=== PATIENT | female | born 1990 | race Caucasian/White ===

== ENCOUNTER → 2016-06-21 | Outpatient (CLI) | payer OTHER ==
--- NOTE | 2016-06-21 16:50 | REP ---
Clinical: Pelvic pain . Technique: Transabdominal pelvic ultrasound followed by transvaginal examination for better evaluation of the endometrium and adnexa with color Doppler evaluation of the ovaries. Findings: Bladder is unremarkable and measures 12.7 x 13.2 x 8.6 cm. Normal anteverted uterus measures 8.1 x 3.8 x 4.9 cm . The endometrial complex measures 6.6 mm thickness. No discrete uterine or endometrial abnormalities are appreciated. Bilateral ovaries are normal in appearance and vascularity without evidence for torsion. Right ovary measures 3.8 x 2.2 x 3.0 cm ; R I = 0.54 . Left ovary measures 3.5 x 2.1 x 1.7 cm ; R I = 0.46 . No pelvic fluid or adnexal mass lesion . Impression: Normal pelvic ultrasound. Normal uterus. Normal bilateral ovaries without torsion. Signed by Bob Butt MD 06/21/2016 04:42 P
== END ==
LOC: M LRY 15:53
PROVIDERS: ATTEND Family Medicine
DX: R10.2 Pelvic and perineal pain (principal)
CPT/HCPCS: 76830; 76856; 87491; 87591; 93976; 96372; G0463; J0696

== ENCOUNTER → 2016-06-21 | Outpatient (REF) | payer OTHER | LOC: M SFHCLERA 14:22 | PROVIDERS: ATTEND Family Medicine | DX: R10.2 Pelvic and perineal pain (principal) ==

== ENCOUNTER → 2016-06-24 | Outpatient (CLI) | payer OTHER ==
--- NOTE | 2016-06-24 16:25 | REP ---
Clinical: Acute lower back pain . Technique: AP, lateral, bilateral oblique, and coned-down views. Findings: Alignment and lordosis is maintained. The vertebral bodies including transverse process and spinous processes are intact and normal. There is no evidence for acute fracture / compression injury or subluxation. No evidence for spondylolysis or spondylolisthesis. No significant degenerative change is noted. Impression: Normal lumbosacral spine radiograph series. Signed by Bob Butt MD 06/24/2016 04:17 P
== END ==
LOC: M LRY 14:53
PROVIDERS: ATTEND Family Medicine
DX: M54.5 Low back pain (principal)
CPT/HCPCS: 72110; 87086; G0463

== ENCOUNTER → 2016-06-24 | Outpatient (REF) | payer OTHER | LOC: M SFHCLERA 13:55 | PROVIDERS: ATTEND Family Medicine | DX: M54.5 Low back pain (principal) ==

== ENCOUNTER → 2016-10-17 | Outpatient (REF) | payer OTHER ==
[2016-10-17 19:29] LABS: MEAN CORPUSCULAR HEMOGLOBIN 30.4 pg (27.0-33.0); WHITE BLOOD COUNT 8.1 K/mm3 (4.0-10.0)
== END ==
LOC: M SFHCLERA 09:46
PROVIDERS: ATTEND Family Medicine
DX: K62.5 Hemorrhage of anus and rectum (principal)

== ENCOUNTER → 2017-06-30 | Outpatient (CLI) | payer OTHER | LOC: M RAD 08:23 | DX: R10.30 Lower abdominal pain, unspecified (principal) | CPT/HCPCS: 76700 ==

== ENCOUNTER 2017-07-10 10:13 | Day surgery (SDC) | payer OTHER ==
[2017-07-10] MEDS ORDERED: NS 1,000 ML IV (10:30)
[2017-07-10] MEDS ORDERED: PROPOFOL 200 MG/20 ML VIAL As Ordered (11:43)
== END 2017-07-10 12:41 | disposition home or self-care (01) ==
LOC: M SDC 12:41
DX: R10.30 Lower abdominal pain, unspecified (principal); K92.1 Melena; K63.3 Ulcer of intestine; D68.51 Activated protein C resistance; G47.00 Insomnia, unspecified; Z86.14 Personal history of Methicillin resistant Staphylococcus aureus infection; Z98.51 Tubal ligation status; Z87.891 Personal history of nicotine dependence
CPT/HCPCS: 45380

== ENCOUNTER → 2017-07-25 | Outpatient (CLI) | payer OTHER ==
[2017-07-25 13:20] LABS: BASO % 0.4 % (0.0-1.0); EOS # 0.2 10^3/uL (0.0-0.50); EOS % 2.5 % (0.0-3.0); HEMATOCRIT 36.5 % (36.0-47.0); HEMOGLOBIN 12.3 g/dl (12.0-16.0); IMMATURE GRANULOCYTE % 0.1 % (0-3.0); LYMPH # 2.2 10^3/uL (1.5-6.5); LYMPH % 25.9 % (24.0-44.0); MEAN CORPUSCULAR HEMOGLOBIN 29.7 pg (27.0-33.0); MEAN CORPUSCULAR HGB CONC 33.7 g/dl (32.0-36.5); MEAN CORPUSCULAR VOLUME 88.2 fl (80.0-96.0); MONO # 0.5 10^3/uL (0.0-0.8); MONO % 5.7 % (0.0-5.0); NEUTROPHILS # 5.6 10^3/uL (1.8-7.7); NEUTROPHILS % 65.4 % (36.0-66.0); PLATELET COUNT, AUTOMATED 294 10^3/uL (150-450); RED BLOOD COUNT 4.14 10^6/uL (4.00-5.40); RED CELL DISTRIBUTION WIDTH 13.2 % (11.5-14.5); WHITE BLOOD COUNT 8.5 10^3/uL (4.0-10.0)
[2017-07-25 13:38] LABS: ALBUMIN 3.7 GM/DL (3.2-5.2); ALBUMIN/GLOBULIN RATIO 1.28 (1.00-1.93); ALKALINE PHOSPHATASE 42 U/L (45-117); ALT/SGPT 24 U/L (12-78); ANION GAP 9 MEQ/L (8-16); AST/SGOT 15 U/L (7-37); BILIRUBIN,DIRECT < 0.1 MG/DL (0.0-0.2); BILIRUBIN,TOTAL 0.2 MG/DL (0.2-1.0); BLOOD UREA NITROGEN 10 MG/DL (7-18); C REACTIVE PROTEIN QUANTITATIV < 0.30 MG/DL (0.00-0.30); CALCIUM LEVEL 8.7 MG/DL (8.5-10.1); CARBON DIOXIDE LEVEL 26 MEQ/L (21-32); CHLORIDE LEVEL 109 MEQ/L (98-107); CREATININE FOR GFR 0.75 MG/DL (0.55-1.30); GLOMERULAR FILTRATION RATE > 60.0 (>60); GLUCOSE, FASTING 90 MG/DL (70-100); SODIUM LEVEL 144 MEQ/L (136-145); TOTAL PROTEIN 6.6 GM/DL (6.4-8.2)
[2017-07-25 14:05] LABS: ERYTHROCYTE SEDIMENTATION RATE 5 mm/hr (0-20)
[2017-07-26 12:11] LABS: HEPATITIS B SURFACE ANTIBODY POSITIVE (POSITIVE)
[2017-07-26 12:14] LABS: HEPATITIS B SURFACE ANTIGEN NEGATIVE (NEGATIVE)
[2017-07-26 12:30] LABS: HEPATITIS C VIRUS ABY INDEX 0.1 INDEX (<0.8)
== END ==
LOC: M LAB 12:34
DX: R19.7 Diarrhea, unspecified (principal)
CPT/HCPCS: 80076

== ENCOUNTER → 2017-12-20 | Outpatient (CLI) | payer OTHER | LOC: M LRY 14:02 | DX: S99.921A Unspecified injury of right foot, initial encounter (principal); X58.XXXA Exposure to other specified factors, initial encounter; Y92.9 Unspecified place or not applicable | CPT/HCPCS: 73660; G0463 ==

== ENCOUNTER → 2018-01-16 | Outpatient (REF) | payer OTHER ==
[2018-01-24 14:16] LABS: CALPROTECTIN STOOL <16 ug/g (0-120)
== END ==
LOC: M LAB REF 10:54
DX: R19.7 Diarrhea, unspecified (principal)
CPT/HCPCS: 83993

== ENCOUNTER → 2018-02-01 | Outpatient (REF) | payer OTHER ==
[2018-02-01 11:50] LABS: APPEARANCE, URINE CLEAR (CLEAR); BACTERIA, URINE AUTO NEGATIVE (NEGATIVE); BILIRUBIN, URINE AUTO NEGATIVE (NEGATIVE); BLOOD, URINE BLOOD NEGATIVE (NEGATIVE); COLOR, URINE STRAW (YELLOW); GLUCOSE, URINE (UA) AUTO NEGATIVE (NEGATIVE); KETONE, URINE AUTO NEGATIVE (NEGATIVE); LEUKOCYTE ESTERASE, URINE AUTO TRACE (NEGATIVE); MUCUS, URINE SMALL (NEGATIVE); NITRITE, URINE AUTO NEGATIVE (NEGATIVE); PROTEIN, URINE AUTO NEGATIVE (NEGATIVE); RBC, URINE AUTO 0 /HPF (0-3); SPECIFIC GRAVITY URINE AUTO 1.003 (1.002-1.035); SQUAMOUS EPITHELIAL CELL UR AU 0 /HPF (0-6); UROBILINOGEN, URINE AUTO 0.2 mg/dL (0.0-2.0); WBC, URINE AUTO 0 /HPF (0-3)
== END ==
LOC: M SFHCLERA 08:49
DX: R30.0 Dysuria (principal)

== ENCOUNTER → 2018-02-05 | Outpatient (REF) | payer OTHER ==
[2018-02-05 22:21] LABS: CHLAMYDIA DNA AMPLIFICATION NEGATIVE (NEGATIVE); GC DNA AMPLIFICATION NEGATIVE (NEGATIVE)
== END ==
LOC: M SFHCLERA 16:27
DX: R10.2 Pelvic and perineal pain (principal)

== ENCOUNTER → 2018-02-15 | Outpatient (CLI) | payer OTHER ==
[2018-02-15 15:25] LABS: ERYTHROCYTE SEDIMENTATION RATE 4 mm/hr (0-20)
[2018-02-15 16:10] LABS: C REACTIVE PROTEIN QUANTITATIV < 0.30 MG/DL (0.00-0.30)
[2018-02-17 14:11] LABS: H PYLORI SERUM QUANT IgG ABY 3.29 (0.00-0.79)
[2018-02-17 14:11] LABS: H PYLORI SERUM QUANT IGM <9.0 units (0.0-8.9)
[2018-02-22 08:30] LABS: IBDSER1 SEE SEPARATE REPORT
== END ==
LOC: M LAB 13:54
DX: R19.7 Diarrhea, unspecified (principal)
CPT/HCPCS: 86140

== ENCOUNTER → 2018-04-24 | Outpatient (REF) | payer OTHER ==
[~2018-04-24] MED LIST: MULT1TAB8 PO
[2018-04-27 00:40] LABS: HPV HYBRID CAPTURE II Negative (Negative)
== END ==
LOC: M LAB REF 13:21
PROVIDERS: ATTEND Obstetrics & Gynecology
DX: Z12.4 Encounter for screening for malignant neoplasm of cervix (principal)

== ENCOUNTER → 2018-04-26 | Outpatient (CLI) | payer OTHER ==
--- NOTE | 2018-04-27 08:59 | REP ---
Clinical: Pelvic and perineal pain . Comparison: 06/21/2016 Technique: Transabdominal pelvic ultrasound followed by transvaginal examination for better evaluation of the endometrium and adnexa with color Doppler evaluation of the ovaries. Findings: Bladder is unremarkable and measures 6.0 x 4.7 x 8.7 cm . Normal anteverted uterus measures 9.1 x 4.4 x 5.3 cm . The endometrial complex measures 5.5 mm thickness excluding trace endocervical fluid. Small Nabothian cysts identified. No significant discrete uterine or endometrial abnormalities are appreciated. Bilateral ovaries are normal in appearance and vascularity without evidence for torsion. Right ovary measures 4.0 x 2.9 x 3.0 cm with 2.2 cm involuting physiologic cyst ; R I = 0.58 . Left ovary measures 3.4 x 1.3 x 2.0 cm ; R I = 0.59 . Trace pelvic free fluid likely physiologic. No adnexal mass lesion identified. Impression: 1. Essentially normal pelvic ultrasound with likely physiologic changes as described above including involuting right ovarian cyst trace endocervical fluid. Electronically Signed by Bob Butt MD 04/27/2018 08:51 A
== END ==
LOC: M RAD 11:51
PROVIDERS: ATTEND Obstetrics & Gynecology
DX: R10.2 Pelvic and perineal pain (principal); Z80.3 Family history of malignant neoplasm of breast; N83.291 Other ovarian cyst, right side

== ENCOUNTER → 2018-06-26 | Outpatient (CLI) | payer OTHER | LOC: M SMT 10:46 | PROVIDERS: ATTEND Obstetrics & Gynecology | DX: Z80.3 Family history of malignant neoplasm of breast (principal) ==

== ENCOUNTER → 2018-07-30 | Outpatient (CLI) | payer OTHER ==
--- NOTE | 2018-07-31 09:30 | REPMRS ---
Patient History The patient states she has not had a clinical breast exam in over a year. Family history of breast cancer in maternal grandmother, colorectal cancer at age 85 in paternal grandfather, endometrial cancer in paternal aunt, prostate cancer at age 63 in father. 2D only. denied. Patient shielded. Digital Mammo Screening Bilat: July 30, 2018 - Exam #: [id number] Bilateral CC and MLO view(s) were taken. Technologist: Pau Beauchamp, Technologist FINDINGS: The breast tissue is extremely dense which could obscure a lesion on mammography. There is no evidence of cancer on this mammogram. Assessment: BI-RADS/ACR category 2 mammogram. Benign Findings. Recommendation Routine screening mammogram of both breasts in 1 year (for women over age 40). This mammogram was interpreted with the aid of an FDA-approved computer-aided dectection system. Electronically Signed By: Aguila Combs MD 07/31/18 [id number]
== END ==
LOC: M RAD 17:43
PROVIDERS: ATTEND Obstetrics & Gynecology
DX: Z12.31 Encounter for screening mammogram for malignant neoplasm of breast (principal)

== ENCOUNTER → 2018-08-02 | Outpatient (REF) | payer OTHER | LOC: M LAB REF 17:27 | PROVIDERS: ATTEND Obstetrics & Gynecology | DX: Z01.818 Encounter for other preprocedural examination (principal); R10.2 Pelvic and perineal pain; N85.00 Endometrial hyperplasia, unspecified ==

== ENCOUNTER 2018-08-20 09:27 | Day surgery (SDC) | payer OTHER ==
[~2018-08-20] VITALS: Ht 154.9 cm; Wt 56.7 kg
[~2018-08-20 09:27] MED LIST changes: +LIDOCAINE 2% INJ 100 MG/5 ML SDV (FOR ANES.) As Ordered ONE; +LR 1,000 ML IV SCH; +MIDAZOLAM INJ 2 MG/2 ML VIAL (J2250) As Ordered ONE; +ONDANSETRON 4MG/2ML VIAL (J2405) As Ordered ONE; +PROPOFOL 200 MG/20 ML VIAL As Ordered ONE; +ROCURONIUM BROMIDE 50 MG/5 ML VIAL As Ordered ONE; +dexameTHASONE 4 MG/ML 1ML VIAL (J1100) As Ordered ONE; +fentaNYL 250 MCG/5 ML INJECTION (J3010) As Ordered ONE
[2018-08-20 09:50] LABS: HEMATOCRIT 41.3 % (36.0-47.0); HEMOGLOBIN 13.7 g/dl (12.0-15.5); MEAN CORPUSCULAR HGB CONC 33.2 g/dl (32.0-36.5); MEAN CORPUSCULAR VOLUME 90.4 fl (80.0-96.0); PLATELET COUNT, AUTOMATED 264 10^3/uL (150-450); RED BLOOD COUNT 4.57 10^6/uL (4.00-5.40); WHITE BLOOD COUNT 7.6 10^3/uL (4.0-10.0)
[2018-08-20 10:22] LABS: HCG, SERUM QUALITATIVE NEGATIVE (NEGATIVE)
[2018-08-20] MEDS ORDERED: BUPIVACAINE HCL 0.25% 30 ML VIAL As Ordered ONE (10:22)
[2018-08-20] MEDS ORDERED: METHYLENE BLUE 0.5% (5MG/ML) 10 ML AMP (PROVAYBLUE)(Q9968 PER 1MG) As Ordered ONE (10:22)
[2018-08-20] MEDS ORDERED: ROCURONIUM BROMIDE 50 MG/5 ML VIAL As Ordered ONE (12:04)
[2018-08-20] MEDS ORDERED: KETOROLAC 60 MG/2 ML VIAL (J1885) As Ordered ONE (12:16)
[2018-08-20] MEDS ORDERED: fentaNYL 100 MCG/2 ML INJECTION (J3010) As Ordered ONE (12:54)
[2018-08-20] MEDS ORDERED: IBUP80TA PO (12:58)
[2018-08-20] MEDS ORDERED: OXYC1TAB23 PO (12:59)
[2018-08-20] MEDS ORDERED: PERCOCET 5MG/325MG TAB PO PRN (13:00)
[2018-08-20] MEDS ORDERED: PROMETHAZINE 25 MG SUPP PR PRN (13:00)
[2018-08-20] MEDS ORDERED: COLA100C5 PO (13:00)
[2018-08-20] MEDS ORDERED: PROMETHAZINE INJ 25 MG/ML VIAL (J2550) IV PRN (13:00)
[2018-08-20] MEDS ORDERED: ONDA4TAB5 PO (13:01)
[2018-08-20] MEDS: PERCOCET 5MG/325MG TAB PO PRN ×4 (13:10→23:07)
[2018-08-20] MEDS: fentaNYL 100 MCG/2 ML INJECTION (J3010) IV PRN ×4 (13:10→13:25)
[2018-08-20] MEDS ORDERED: HYDROMORPHONE HCL 0.5 MG/ 0.5 ML SYRINGE (J1170 PER 1) IV PRN (13:15)
[2018-08-20] MEDS ORDERED: ONDANSETRON 4MG/2ML VIAL (J2405) IV PRN (13:15)
[2018-08-20] MEDS ORDERED: LR 1,000 ML IV SCH (13:15)
[2018-08-20 14:15] VITALS: BP 116/64
[2018-08-20] MEDS: LR 1,000 ML IV SCH ×2 (14:57→21:15)
[2018-08-20 15:00] VITALS: BP 111/59
[2018-08-20 16:00] VITALS: BP 111/60
[2018-08-20 18:00] VITALS: BP 121/53
[2018-08-20] MEDS: KETOROLAC 30 MG/ML VIAL (J1885) IV SCH (18:06)
[2018-08-20] MEDS: DOCUSATE SODIUM 100 MG CAP PO SCH (20:53)
[2018-08-20 22:00] VITALS: BP 98/54
[2018-08-21] MEDS: KETOROLAC 30 MG/ML VIAL (J1885) IV SCH ×2 (00:32→06:00)
[2018-08-21 02:00] VITALS: BP 96/53
[2018-08-21] MEDS: LR 1,000 ML IV SCH (05:15)
[2018-08-21 06:00] VITALS: BP 101/57
[2018-08-21] MEDS: PERCOCET 5MG/325MG TAB PO PRN ×2 (06:09→10:40)
[2018-08-21 06:43] LABS: BASO % 0.1 % (0.0-1.0); EOS # 0.1 10^3/uL (0.0-0.50); EOS % 0.6 % (0.0-3.0); HEMATOCRIT 33.2 % (36.0-47.0); LYMPH # 2.5 10^3/uL (1.5-4.5); LYMPH % 17.8 % (24.0-44.0); MEAN CORPUSCULAR HEMOGLOBIN 29.9 pg (27.0-33.0); MEAN CORPUSCULAR HGB CONC 33.1 g/dl (32.0-36.5); MEAN CORPUSCULAR VOLUME 90.2 fl (80.0-96.0); MONO % 6.8 % (0.0-5.0); NEUTROPHILS # 10.5 10^3/uL (1.8-7.7); NEUTROPHILS % 74.2 % (36.0-66.0); PLATELET COUNT, AUTOMATED 205 10^3/uL (150-450); RED BLOOD COUNT 3.68 10^6/uL (4.00-5.40); WHITE BLOOD COUNT 14.2 10^3/uL (4.0-10.0)
[2018-08-21] MEDS: DOCUSATE SODIUM 100 MG CAP PO SCH (08:13)
--- NOTE | 2018-08-21 08:35 | NUR ---
Operative Note DATE OF PROCEDURE: 08/20/2018 PREOPERATIVE DIAGNOSIS: 1. Chronic pelvic pain/dysmenorrhea POSTOPERATIVE DIAGNOSIS: 1. Chronic pelvic pain/dysmenorrhea PROCEDURE PERFORMED: Robotic-assisted total laparoscopic hysterectomy, bilateral salpingectomy, and cystoscopy. SURGEON: Klaus Tran DO. LOOM MECHANIC: USAMA Umanzor (needed for uterine manipulation). ANESTHESIA: General endotracheal. SPECIMENS TO PATHOLOGY: Uterus, cervix with bilateral fallopian tubes ESTIMATED BLOOD LOSS: 50 mL. FLUIDS REPLACED: 1.5 liters lactated Ringer's. DRAINS: Dillon catheter 250 mL. COMPLICATIONS: None. PREOPERATIVE ANTIBIOTICS: Ancef 2g IV x 1 (administered within 30 minutes of procedure start time) INTRAOPERATIVE FINDINGS: Uterus was approximately 8 cm in greatest dimension. The uterus was of normal shape/contour (no leiomyomas). The right and left ovary and fallopian tubes were normal in appearance. Cystoscopic findings: No bladder injury. No suture material. Bilateral ureteral orifice efflux visualized after IV infusion of methylene blue. INDICATION: Chronic pelvic pain/dysmenorrhea, declining further medical management or more conservative surgical management (i.e endometrial ablation) PROCEDURE: The patient was counseled and consented on the risks, benefits, indications, and alternatives of the procedure. Informed consent was obtained. She was take n to the operating room with an IV running and placed on the operating table in the dorsal supine position. General anesthesia was administered and airway secured without any difficulty. The patient was placed in a level horizontal low lithotomy position. She was prepped and draped in a normal sterile fashion. A time-out was performed per protocol. A Dillon catheter was placed under sterile conditions. A sterile speculum was placed into the vagina with good visualization of the cervix. The anterior lip of the cervix was grasped with a single-tooth tenaculum and downward traction was applied. The uterus was sounded to 8 cm. The cervix was sequentially dilated with Alvarez dilators up to #16. The anterior and posterior lip were tagged with and interrupted stitch using #0 Vicryl suture. The VCare uterine manipulator was placed in typical fashion without any difficulty. The single-toothed tenaculum was removed. The sterile speculum was removed. The VCare uterine manipulator was noted to be adequately in place. A glove switch was performed. Attention was turned to the abdomen. A 2 mm umbilical incision was made with the 11 blade. The Veress needle was placed through this incision into the intraperitoneal cavity. Intraperitoneal placement was confirmed with the following checks: no resistance/ease of flow of normal saline from the attached syringe through the Veress needle, no return of blood/fluid/succus upon aspirating with the attached syringe, a positive drop test, and the opening pressure during insufflation was less than 10 mmHg. The abdomen was insufflated with 2.5 liters of gas. The Veress needle was removed. An 8 mm horizontal midline, supraumbilical incision was made with the 11 blade. Through this incision, the trocar was placed under direct visualization technique into the intraperitoneal cavity. Intraperitoneal placement was confirmed. The patient was placed in a low lithotomy steep Trendelenberg position. The right and left lower quadrant port sites were placed via 8 mm incisions using the 11 blade. The 8 mm da Kale cannulas were placed under laparoscopic guidance on both sides. An additional 8 mm accessory port-site was placed under laparoscopic guidance in the left upper quadrant. Given the successful placement of all the DaVinci cannulas, the robot was easily side-docked. Attention was turned to the [employer] robotic console. The right fallopian tube, utero-ovarian ligament, and round ligament were sequentially clamped, coagulated and transected with the [employer] vessel sealer device. The Da Kale vessel sealer was used to dissect and mobilize the right-sided half of the vesicouterine peritoneum/"bladder flap" with both blunt and bipolar dissection. The right uterine vasculature was skeletonized and identified. Excellent hemostasis was achieved. The left fallopian tube, utero-ovarian ligament and round ligament were sequentially clamped, coagulated and transected using the Da Kale vessel sealer device. The left uterine vasculature was skeletonized and easily identified. Excellent hemostasis was noted. The remainder of the vesicouterine peritoneum was dissected and mobilized along the anterior portion of the VCare uterine manipulator cup in order to complete the bladder flap. This resulted in adequate mobilization/displacement of the bladder away from the cervix. During all of the dissection described above, an occasional small bleeding vessel needed to be cauterized with the DaVinci bipolar forceps. The right and left uterine vasculature were sequentially clamped, coagulated and transected with both DaVinci bipolar forceps and vessel sealer instruments. Excellent blanching of the uterus was noted, thus indicating that the blood supply to the uterus was obliterated. Excellent hemostasis was noted. The DaVinci monopolar pia were used to create the circumferential colpotomy around the VCare cervical cup border. Incidental small bleeding vaginal vessels were cauterized with the DaVinci bipolar forceps. This circumferential incision was completed and the uterus with the cervix was noted to be fully amputated as one unit. This specimen was brought through the colpotomy into the vagina, and ultimately removed and sent to pathology for permanent section. The right and left distal fallopian tubes were identified and excised with the Da Kale vessel sealer instrument, thus removing both fimbriated ends of each fallopian tube. These specimens were brought through the vagina and sent to pathology for permanent section. The vaginal cuff was closed in running fashion with V-Loc suture. Excellent hemostasis of the vaginal cuff was noted. The lower abdomen/pelvis was irrigated and suctioned, thus removing all blood and clot. Excellent hemostasis was noted. [place] was placed over the surgical sites to maintain hemostasis. The insufflation gas was released from the intraperitoneal cavity. All cannulas were removed. The robot was un-docked without any difficulty. The patient was taken out of steep Trendelenburg and placed back into a level horizontal low lithotomy position. The Dillon catheter was removed. A 30 degree cystoscope was placed transurethrally into the bladder. The entire bladder mucosa was examined. There was no evidence of a bladder injury or suture material. Brisk bilateral ureteral orifice efflux of urine was visualized after IV infusion of methylene blue. The cystoscope was removed and the Dillon catheter was replaced. The vagina was copiously irrigated. The specimens were removed from the vagina. The vaginal cuff was palpated and noted to be intact. The sponge, needle, and instrument counts were correct. A glove switch was performed. Attention was turned back to the abdomen. The patient was placed back into Trendelenburg. The gas was released from the abdomen. The cannulas were all removed. Each skin incision was closed with #4-0 Monocryl in subcuticular fashion and reinforced with Dermabond. Sponge, needle, and instrument counts were again correct. The patient tolerated the entire procedure well. She was transferred to the postanesthesia care unit in good and stable condition. Maria Dolores Tran DO
[2018-08-21] MEDS ORDERED: IBUPROFEN 800 MG TAB PO SCH (20:00)
== END 2018-08-21 10:48 | disposition home or self-care (01) ==
LOC: M SDC 09:27 → M MSPAV 14:15 → M SDC 08-21 10:48
PROVIDERS: ATTEND Obstetrics & Gynecology
DX: R10.2 Pelvic and perineal pain (principal); N92.6 Irregular menstruation, unspecified; K52.89 Other specified noninfective gastroenteritis and colitis; F17.210 Nicotine dependence, cigarettes, uncomplicated
CPT/HCPCS: 36415; 58571; 84703; 85025; 85027; 86850; 86900; 86901; 88307; 96374; 96376; J0690; J1100; J1885; J2250; J2405; J3010; Q9968